=== PATIENT | male | born 1990 | race African-American/Black ===

== ENCOUNTER 2017-12-30 21:39 | Emergency (ER) | payer SELFPAY ==
[~2017-12-30] VITALS: Ht 182.9 cm; Wt 81.6 kg
[2017-12-30 21:57] VITALS: BP 143/71
== END 2017-12-30 22:01 | disposition home or self-care (01) ==
LOC: ER 21:39
DX: F10.120 Alcohol abuse with intoxication, uncomplicated (principal); F17.210 Nicotine dependence, cigarettes, uncomplicated; Z02.89 Encounter for other administrative examinations; V49.49XA Driver injured in collision with other motor vehicles in traffic accident, initial encounter; Y93.89 Activity, other specified; Y99.8 Other external cause status; Y92.89 Other specified places as the place of occurrence of the external cause